=== PATIENT | female | born 1975 | race Caucasian/White ===

== ENCOUNTER 2016-11-03 23:37 | Emergency (ER) | payer MEDICARE ==
[2016-11-04] MEDS ORDERED: lamoTRIgine 25 MG TAB PO ONE (00:20)
== END 2016-11-04 02:15 | disposition home or self-care (01) ==
LOC: ER 23:37
DX: R56.9 Unspecified convulsions (principal)
CPT/HCPCS: 36415; 80053; 80307; 81003; 82947; 83735; 85025; 99284; G0480; 80320